=== PATIENT | male | born 2000 | race Two or more races ===

== ENCOUNTER 2024-11-11 11:23 | Emergency (ER) | payer OTHER, SELFPAY ==
[2024-11-11 11:29] VITALS: BP 145/87; PULSE 91; RESP 12; TEMP 36.8; O2SAT 97
--- NOTE | 2024-11-11 11:30 | DI.CT_ITS ---
Exam(s) CT ABDOMEN PELVIS W EXAM: CT ABDOMEN PELVIS W CLINICAL HISTORY: Left rectal pain. TECHNIQUE: Imaging Protocol: Axial computed tomography images with coronal and sagittal reformatted images were created and reviewed CONTRAST MATERIAL: Intravenous: Omnipaque 350 Contrast volume:75 ml Oral: no COMPARISON: No exams were available for comparison FINDINGS: ABDOMEN and PELVIS: Lung Bases: No acute findings. Liver: Normal density. No suspicious mass. Gallbladder and biliary tract: No radiodense calculus. No wall thickening or pericholecystic fluid. No biliary dilation. Pancreas: Normal density. No abnormal calcifications or inflammatory process. No evidence of mass. Spleen: Normal. Kidneys: Normal size, contour and axis. No radiodense stones. No obstructive uropathy. No suspicious masses seen. Adrenal glands: No masses seen. Vasculature: Abdominal aorta non-dilated. Soft tissues: Left perirectal swelling and left perirectal abscess measuring 17 x 10 by 15 millimeter s. Bladder: No gross wall thickening. No calculi.No focal mass. Bowel: No obstruction. No bowel wall thickening. Appendix normal. Peritoneal cavity: No ascites. No focal collection. No mesenteric inflammatory response. No free air . Bones: Unremarkable for age. Reproductive organs: Unremarkable. Lymph nodes: No pathologically enlarged lymph nodes. IMPRESSION:: Small left perirectal abscess. Findings called to Dr. Monroe of the emergency department. RADIATION DOSE DELIVERED: 474.57mGy.cm Total DLP DATA REPOSITORY: All CT scans at this facility are submitted to the National Radiology Data Registry (NRDR) Dose Index Registry (DIR) with the [employer] (A[employer]). RADIATION OPTIMIZATION: All CT scans at this facility use at least one of these dose optimization te chniques: automated exposure control; mA and/or kV adjustment per patient size (includes targeted exa ms where dose is matched to clinical indication); or iterative reconstruction.
[2024-11-11 11:56] LABS: Abs Immature Grans 0.08 10^3/uL (0.0-0.06); Absolute Lymphocyte Count 1.42 10^3/uL (1.2-3.4); Absolute Monocyte Count 0.58 10^3/uL (0.1-0.8); Basophils % 0.6 %; Eosinophils % 3.2 %; HCT 47.8 % (40.0-50.0); HGB 15.9 g/dL (13.5-17.5); Immature Grans % 0.6 %; Lymphocytes % 10.2 %; MCH 29.8 pg (27.0-33.0); MCHC 33.3 % (32.0-36.0); MCV 90 fL (80-95); MPV 8.4 fL (8.0-11.0); Monocytes % 4.2 %; Neutrophils % 81.2 %; Platelet Count 361 10^3/uL (130-400); RBC 5.33 10^6/uL (4.36-5.78); RDW-SD 42.2 fL; WBC 13.88 10^3/uL (4.4-10.8)
[2024-11-11 11:57] LABS: Absolute Basophil Count 0.08 10^3/uL (0.0-0.2); Absolute Eosinophil Count 0.44 10^3/uL (0.0-0.7); Absolute Neutrophil Count 11.27 10^3/uL (1.2-6.7)
[2024-11-11] MEDS: Normal Saline - Diluent 50 ML VIAL IJ (12:02)
[2024-11-11] MEDS: Omnipaque 350 MG/ML 100 ML BTL IJ (12:03)
--- NOTE | 2024-11-11 12:11 | ED.GENADUL_ITS ---
Discharge Plan Disposition Patient Disposition: Home Discharge Details Clinical Impression: Perianal abscess Primary Care Provider: None,None ED Provider: Noe Monroe Home Meds and New Rx's Prescriptions: No Action No Known Home Meds Discharge Instructions Additional Instructions: You were seen in the emergency department for your rectal pain. You had an abscess that was drained. Please follow the instructions as given by general surgery: Please complete sitz bath 3 times a day at home. Please remove the packing tomorrow. He may follow-up in the next 1 to 2 weeks in the general surgery clinic if things are not improving. As we discussed if you develop streaking signs of infection and if fevers or foul-smelling drainage or any worsening pain please return to the emergency department. For your pain please take medications as follows: 1. Take acetaminophen (Tylenol), 1,000 mg (two 500 mg tabs) every 6 hours [2. Take ibuprofen (Advil), 400 mg every 6 hours.] Discharge Data Discharge Date/Time-TO BE ENTERED AT DEPARTURE: 11/11/24 17:45 HPI General Date/Time Provider Initiated Documentation: 11/11/24 11:36 . HPI Narrative: MDM This is an overall well-appearing normothermic and not tachycardic 24-year-old male with left-sided fluctuant perianal abscess for which he will undergo CT scan and general surgery consult. No family history of inflammatory bowel disease to suggest new presentation of Crohn's or ulcerative colitis. Patient did say several weeks ago he had some bloody stools but he is not anemic nor tachycardic so not suspicious for acute blood loss anemia. No pain or proportion to suggest necrotizing soft tissue infection. No dysuria nor frequency to suggest increased risk for urinary tract infection. Will keep patient n.p.o. though he has just eaten prior to arrival. He has not been vomit ing to suggest small bowel obstruction. 5:11 PM Please see note from Dr. Rand who completed bedside incision and drainage. Patient I discussed return indications for fever streaking signs of infection. Patient will be observed off of antibiotics per instructions from Dr. Rand. HPI The patient presents for evaluation of a rectal pain. He sought medical attention at an urgent care facility earlier today, where he was diagnosed with a perineal cyst. The onset of symptoms was approximately 9 days ago, characterized by progressive pain that has since escalated, making mobility at work challenging. He reports difficulty in sitting down, standing up, and passing gas or stool. Despite these symptoms, he has not experienced any fevers and has not taken any analgesics such as Tylenol. He is uncertain about the exact location of the cyst but suspects it may be within the rectum. This is his first encounter with such a condition. He occasionally experiences abdominal discomfort after meals but reports no current symptoms. He does not experience dysuria, nausea, or unusual drainage from the cyst. Prior to the onset of these symptoms, he had sporadically noticed blood in his stool, with the last episode occurring 2 to 3 weeks ago. He is not currently sexually active and has no history of anal intercourse. He is not on any daily medications and has no history of diabetes. He is cu rrently under significant stress. He admits to smoking. He drinks about a glass of alcohol a day. He uses marijuana. He does not have a family history of Crohn's disease, ulcerative colitis, or inflammatory bowel disease. Exam General: Well-appearing in no acute distress speaking in complete sentences. Head: Normocephalic, atraumatic. Eye: Extraocular eye movements intact. No conjunctival injection. No scleral icterus. Ear, nose, mouth, throat: Grossly normal inspection. Normal voice, handling secretions normally. Neck: Trachea midline. Cardiovascular: Well-perfused distal extremities. Respiratory: Nonlabored respiration. Gastrointestinal: Nondistended abdomen. Soft nontender. : At the approximately 9 o'clock position patient has a fluctuant approximately 2 cm perianal abscess that extends intra anally. No obvious hemorrhoids. No obvious fissures. Musculoskeletal: No edema. Moving all 4 extremities spontaneously. Skin: Normal for age and race, grossly normal temperature and turgor. No acute rash. Neurologic: Alert and appropriate, no apparent acute deficits. Psychiatric: Mood and manner are appropriate. Grooming and personal hygiene are appropriate. Related Data Home Medications ?Medication ?Instructions ?Recorded ?Confirmed Unknown [No Known Home Meds] 11/11/24 11/11/24 Allergies Allergy/AdvReac Type Severity Reaction Status Date / Time No Known Allergies Allergy Unverified 11/11/24 11:34 General Stated Complaint: Cellulitis ALETHEA: 4 Course Vital Signs Vital signs: Vital Signs Temperature 36.8 C 11/11/24 11:29 Pulse 91 H 11/11/24 11:29 Respiratory Rate 12 11/11/24 11:29 Blood Pressure 145/87 H 11/11/24 11:29 Pulse Oximetry 97 11/11/24 11:29 Temperature 36.8 C 11/11/24 11:29 Temperature Source Oral 11/11/24 11:29 Pulse 91 H 11/11/24 11:29 Respiratory Rate 12 11/11/24 11:29 Blood Pressure 145/87 H 11/11/24 11:29 Blood Pressure Position Sitting 11/11/24 11:29 Pulse Oximetry 97 11/11/24 11:29 Oxygen Delivery Method Room Air 11/11/24 11:29 Oxygen Flow Rate 0 11/11/24 11:29 Pain Level 4 11/11/24 11:29 Lab/Test Results Lab/Test Results: Laboratory Tests Range/Units 11/11/24 11:50 WBC (4.4-10.8) 10^3/uL 13.88 H RBC (4.36-5.78) 10^6/uL 5.33 Hgb (13.5-17.5) g/dL 15.9 Hct (40.0-50.0) % 47.8 MCV (80-95) fL 90 MCH (27.0-33.0) pg 29.8 MCHC (32.0-36.0) % 33.3 RDW (11.8-14.1) % 13.0 Plt Count (130-400) 10^3/uL 361 MPV (8.0-11.0) fL 8.4 Immature Gran % % 0.6 Neutrophils % % 81.2 Lymphocytes % % 10.2 Monocytes % % 4.2 Eosinophils % % 3.2 Basophils % % 0.6 Nucleated RBC % (0.0-0.3) % 0.0 Absolute Neutrophils (1.2-6.7) 10^3/uL 11.27 H Absolute Lymphocytes (1.2-3.4) 10^3/uL 1.42 Absolute Monocytes (0.1-0.8) 10^3/uL 0.58 Absolute Eosinophils (0.0-0.7) 10^3/uL 0.44 Absolute Basophils (0.0-0.2) 10^3/uL 0.08 Medical Decision Making Quality:SDOH Health Related Social Needs: No Data to Display PFSH All Active Problems (Updated 11/11/24 @ 13:02 by Noe Monroe MD) Perianal abscess (Acute) Social History Smoking/Tobacco Use Status: Current every day Tobacco Type: cigarettes Smoking risk assessment performed?: Yes Alcohol Intake: current Alcohol Intake frequency: 0-2 drinks per day Alcohol type: hard liquor Drug use: Daily Substance use type: marijuana Housing: house Do you feel safe at home: Yes Do you feel safe in your relationship?: Yes PAWSS Have you Been Recently Intoxicated or Drunk Within the Last 30 days?: No Have you Ever Experienced Previous Episodes of Alcohol Withdrawal?: No Have you ever Experienced Withdrawal Seizures?: No Have you ever Experienced Delirium Tremens(DT)s?: No Have you ever undergone Alcohol Rehabilitation Treatment (i.e, inpt ot outpatient treatment programs)?: No Have you ever Experienced Blackouts?: No Have you ever Combined Alcohol with other Downers within the last 90 days?: No Have you ever Combined Alcohol with any other Substance of Abuse during the last 90 days?: No Positive Blood Alcohol level on Presentation? [PCS.BAL]: No Evidence of Increased Autonomic Activity (i.e. HR>120, tremor, sweating, agitation, nausea)?: No Result: 0
[2024-11-11 12:13] LABS: Anion Gap 7.4 mmol/L (3-11); BUN 9 mg/dL (7-18); CO2 32.6 mmol/L (21.0-32.0); Calcium 9.9 mg/dL (8.5-10.1); Chloride 102 mmol/L (98-107); Estimated GFR 107.78 (mL/min/1.73m2); Glucose 102 mg/dL (74-106); Potassium 3.7 mmol/L (3.5-5.1); Sodium 142 mmol/L (136-145)
[2024-11-11] MEDS: Ketorolac 15 MG/ML VIAL IVP (12:30)
--- NOTE | 2024-11-11 12:55 | W.SURGCON ---
Date of service: 11/11/24 Time of Service: 12:55 Assessment and Plan Assessment and plan (1) Perianal abscess: Status: Acute Assessment and plan: 24-year-old man with a perianal abscess. It was incised and drained at the bedside. A copious amount of pus was released. Quarter-inch packing left inside. Patient was instructed to do sitz bath's 3 times daily at home. Packing is to be removed tomorrow. Follow-up in the surgery office in 1-2 weeks is optional if things are not improving. If things are getting better and going away, he does not need to follow-up. History of Present Illness Narrative: 24 yo man presents with 10 days of perianal discomfort. It is not getting worse but not getting better. He has never had this before. He denies Crohn's disease. He denies anal sexual activity. He denies any trauma. PFSH All Active Problems (Updated 11/11/24 @ 13:02 by Noe Monroe MD) Perianal abscess (Acute) Social History Smoking/Tobacco Use Status: Current every day Tobacco Type: cigarettes Smoking risk assessment performed?: Yes Alcohol Intake: current Alcohol Intake frequency: 0-2 drinks per day Alcohol type: hard liquor Drug use: Daily Substance use type: marijuana Housing: house Do you feel safe at home: Yes Do you feel safe in your relationship?: Yes Exam Narrative Exam Narrative: Gen: Non-toxic, comfortable and interactive Neuro: Alert and oriented x3 Psych: Good mood and affect. Good insight and understanding into condition. Chest: Non-labored breathing, no wheezing, no visible shortness of breath. Heart: Regular Peroneum/perianal: There is a palpable fluctuant and indurated area on the left lateral aspect of the perianal tissue consistent with a likely abscess. Results Last Vital Signs Temp 98.2 F 11/11/24 11:29 Pulse 91 H 11/11/24 11:29 Resp 12 11/11/24 11:29 BP 145/87 H 11/11/24 11:29 Pulse Ox 97 11/11/24 11:29 Labs 11/11/24 11:50 11/11/24 11:50 Labs: Laboratory Results - last 24 hr 11/11/24 11:50 WBC 13.88 H RBC 5.33 Hgb 15.9 Hct 47.8 MCV 90 MCH 29.8 MCHC 33.3 RDW 13.0 Plt Count 361 MPV 8.4 Immature Gran % 0.6 Neutrophils % 81.2 Lymphocytes % 10.2 Monocytes % 4.2 Eosinophils % 3.2 Basophils % 0.6 Nucleated RBC % 0.0 Absolute Neutrophils 11.27 H Absolute Lymphocytes 1.42 Absolute Monocytes 0.58 Absolute Eosinophils 0.44 Absolute Basophils 0.08 Sodium 142 Potassium 3.7 Chloride 102 Carbon Dioxide 32.6 H Anion Gap 7.4 BUN 9 Creatinine 1.0 Est GFR (CKD-EPI 2020) 107.78 Glucose 102 Calcium 9.9 Procedures Abscess I/D Site: other (Perianal) Side (if applicable): left Anesthetic used: lidocaine 2% Technique: incised with #11 blade Packing used?: iodoform
[2024-11-11 16:54] VITALS: PULSE 82; RESP 16; O2SAT 98
[2024-11-11] MEDS: Lidocaine 2% Multi-Dose 20 ML VIAL IJ (17:05)
== END 2024-11-11 17:45 | disposition home or self-care (01) ==
PROVIDERS: Emergency Provider Emergency Medicine
DX: K61.0 Anal abscess (principal)
CPT/HCPCS: 00123; 36415; 46050; 80048; 96374; 99285; 74177; 85025; 99284; J1885; J2003; J3490